=== PATIENT | male | born 1995 | race Caucasian/White ===

== ENCOUNTER 2021-12-01 01:18 | Outpatient (CLI) | payer OTHER, SELFPAY ==
[2021-12-01 20:37] LABS: COVID-19 RT-PCR UVMMC Result Negative (Negative)
== END 2021-12-01 01:19 | disposition home or self-care (01) ==
LOC: LBO 01:18
PROVIDERS: Visit Provider Nurse Practitioner Family
DX: Z20.822 Contact with and (suspected) exposure to COVID-19 (principal)
CPT/HCPCS: U0003